=== PATIENT | male | born 1995 | race Caucasian/White ===

== ENCOUNTER 2017-05-25 12:02 | Emergency (ER) | payer OTHER ==
[2017-05-25 12:07] VITALS: BP 119/61; PULSE 73; TEMP 98; BMI 24.0
[2017-05-25] MEDS ORDERED: IBUPROFEN 400 MG TABLET (FP) PO ONE ×2 (13:22→13:25)
--- NOTE | 2017-05-25 13:28 | PDOC ---
History of Present Illness - General Chief Complaint: Injury Stated Complaint: INJURY Time Seen by Provider: 05/25/17 12:43 History Source: Patient - History of Present Illness Occurred: reports: just prior to arrival Upper Extremity Pain Location: left: elbow Method of Injury: reports: fell Past History - Past Medical History Allergies/Adverse Reactions: Allergies Allergy/AdvReac Type Severity Reaction Status Date / Time No Known Allergies Allergy Verified 05/25/17 12:03 Home Medications: Ambulatory Orders Ibuprofen [Motrin -] 600 mg PO QID #28 tablet 05/25/17 Other medical history: DENIES. - Psycho/Social/Smoking Cessation Hx Suicidal Ideation: No Smoking History: Current some day smoker Have you smoked in the past 12 months: Yes Information on smoking cessation initiated: No Review of Systems - Review of Systems Musculoskeletal: Yes: Joint Pain, Joint Swelling Neurological: No: Numbness, Tingling, Weakness *Physical Exam - Vital Signs Last Vital Signs Temp Pulse Resp BP Pulse Ox 98 F 73 19 119/61 98 05/25/17 12:03 05/25/17 12:03 05/25/17 12:03 05/25/17 12:03 05/25/17 12:03 - Physical Exam General Appearance: Yes: Appropriately Dressed. No: Apparent Distress HEENT: positive: Normal Voice Neck: positive: Supple Respiratory/Chest: negative: Respiratory Distress Extremity: positive: Swelling (to lateral aspect of L elbow, unable to flex/ extend elbow, NVI) Integumentary: positive: Dry, Warm Neurologic: positive: Fully Oriented, Alert, Normal Mood/Affect ED Treatment Course - RADIOLOGY Radiology Studies Ordered: Category Date Time Status ELBOW-LEFT [RAD] Stat Radiology 05/25/17 13:22 Ordered SHOULDER-LEFT [RAD] Stat Radiology 05/25/17 13:22 Ordered WRIST-LEFT [RAD] Stat Radiology 05/25/17 13:22 Ordered Medical Decision Making - Medical Decision Making 05/25/17 13:24 22 yo M, no sig hx, here w/ L elbow deformity after falling on an outstretched hand while playing soccer today. Denies any other injuries See exam R/o L elbow fx/dislocation -pain control -sling -XR 05/25/17 14:41 Avulsion fx of coronoid process or ulna. Pt given sling and pain control and instructed to f/u with orthopedics as soon as possible to ensure that complications like osteochondritis dessecans, does not occur. 05/25/17 14:54 05/25/17 14:57 *DC/Admit/Observation/Transfer Diagnosis at time of Disposition: Elbow fracture, right Qualifiers: Encounter type: initial encounter Fracture type: closed Qualified Code(s): S42.401A - Unspecified fracture of lower end of right humerus, initial encounter for closed fracture - Discharge Dispostion Disposition: HOME Condition at time of disposition: Good - Prescriptions Prescriptions: Ibuprofen [Motrin -] 600 mg PO QID #28 tablet - Patient Instructions Printed Discharge Instructions: DI for Elbow Fracture Additional Instructions: Please call the orthopedist tomorrow to make an appointment for as soon as possible Take 600mg of motrin every 6 hrs for pain
--- NOTE | 2017-05-25 14:59 | PDOC ---
*Physical Exam - Vital Signs Last Vital Signs Temp Pulse Resp BP Pulse Ox 98 F 73 19 119/61 98 05/25/17 12:03 05/25/17 12:03 05/25/17 12:03 05/25/17 12:03 05/25/17 12:03 ED Treatment Course - RADIOLOGY Radiology Studies Ordered: Category Date Time Status ELBOW-LEFT [RAD] Stat Radiology 05/25/17 13:22 Completed SHOULDER-LEFT [RAD] Stat Radiology 05/25/17 13:22 Completed WRIST-LEFT [RAD] Stat Radiology 05/25/17 13:22 Ordered - Medications Given in the ED: ED Medications Discontinued Medications Generic Name Dose Route Start Last Admin Trade Name Freq PRN Reason Stop Dose Admin Ibuprofen 800 mg 05/25/17 13:22 05/25/17 13:26 Motrin - PO 05/25/17 13:23 800 mg ONCE ONE Administration *DC/Admit/Observation/Transfer Diagnosis at time of Disposition: Elbow fracture, right Qualifiers: Encounter type: initial encounter Fracture type: closed Qualified Code(s): S42.401A - Unspecified fracture of lower end of right humerus, initial encounter for closed fracture - Discharge Dispostion Disposition: HOME Condition at time of disposition: Good - Prescriptions Prescriptions: Ibuprofen [Motrin -] 600 mg PO QID #28 tablet - Referrals Referrals: Maya Oh MD [Primary Care Provider] - Iván Horn MD [Staff Physician] - - Patient Instructions Printed Discharge Instructions: DI for Elbow Fracture Additional Instructions: Please call the orthopedist tomorrow to make an appointment for as soon as possible Take 600mg of motrin every 6 hrs for pain - Post Discharge Activity
== END 2017-05-25 15:28 | disposition home or self-care (01) ==
LOC: JERFT 12:02 → EDSEX 12:02 → JERFT 15:28
DX: S52.042A Displaced fracture of coronoid process of left ulna, initial encounter for closed fracture (principal); W18.39XA Other fall on same level, initial encounter; Y93.66 Activity, soccer; Y92.322 Soccer field as the place of occurrence of the external cause; Y99.8 Other external cause status
CPT/HCPCS: 73030-TC-LT; 73070-TC-LT; 99281-25

== ENCOUNTER 2018-03-19 19:45 | Emergency (ER) | payer OTHER ==
[2018-03-19] MEDS ORDERED: FLUORESCEIN NA 1 EA STRIP ONE (20:37)
[2018-03-19] MEDS ORDERED: TETRACAINE 0.5% OPHTH SOLN 2 ML BOTTLE ONE (20:37)
[2018-03-19 20:49] VITALS: BP 134/79; PULSE 75; TEMP 99; BMI 24.9
[2018-03-19] MEDS ORDERED: TOBRAMYCIN 0.3% OPHTH SOLN 5 ML BOTTLE ONE (21:51)
--- NOTE | 2018-03-19 21:55 | PDOC ---
History of Present Illness - General Chief Complaint: Eye Problem Stated Complaint: LEFT EYE PAIN Time Seen by Provider: 03/19/18 20:30 - History of Present Illness Initial Comments: This 23-year-old man, otherwise healthy ,presents with left eye pain. 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 He does not recall anything falling into his eye but approximately an hour prior to presentation he became aware of pain in his eye. He also saw of redness in the lateral aspect of the eye. He denies vision changes. No previous history of eye injury. He has not had any crusting or discharge from the eye. Past History - Past Medical History Allergies/Adverse Reactions: Allergies Allergy/AdvReac Type Severity Reaction Status Date / Time No Known Allergies Allergy Verified 03/19/18 20:30 Home Medications: Ambulatory Orders NK [No Known Home Medication] 03/19/18 COPD: No - Immunization History Immunization Up to Date: Yes - Suicide/Smoking/Psychosocial Hx Smoking History: Never smoked Have you smoked in the past 12 months: Yes Information on smoking cessation initiated: No Hx Alcohol Use: No Drug/Substance Use Hx: No Substance Use Type: None Review of Systems - Review of Systems Able to Perform ROS?: Yes Comments:: 12 point review of systems is negative except for what is noted in the history of present illness *Physical Exam - Vital Signs Last Vital Signs Temp Pulse Resp BP Pulse Ox 99.0 F 75 16 134/79 100 03/19/18 20:29 03/19/18 20:29 03/19/18 20:29 03/19/18 20:29 03/19/18 20:29 - Physical Exam Comments: GENERAL: HEAD: Normal with no signs of trauma. EYES: PERRLA, EOMI, sclera anicteric, small sub conjunctival hemorrhage lateral aspect of left eye Anterior chambers normal without evidence of hyphema or other abnormality; no obvious foreign body noted ENT: Ears normal, nares patent, oropharynx clear without exudates. Dry mucous membranes. NEUROLOGICAL: Cranial nerves II through XII grossly intact. Normal speech. No focal neurological deficits. MUSCULOSKELETAL: Back non-tender to palpation, no CVA tenderness SKIN: Warm, Dry, normal turgor, no rashes or lesions noted. 2 drops of tetracaine ophthalmic solution applied to the left eye; fluorescein staining revealed small central corneal abrasion of the left eye. No evidence of foreign body present. No other abrasion seen. Moderate Sedation - Procedure Monitoring Vital Signs: Vital Signs Temp Pulse Resp BP Pulse Ox 99.0 F 75 16 134/79 100 03/19/18 20:29 03/19/18 20:29 03/19/18 20:29 03/19/18 20:29 03/19/18 20:29 Medical Decision Making - Medical Decision Making Clinical presentation consistent with small corneal abrasion of of the left eye ; there is also a small lateral subconjunctival hemorrhage in the side. Otherwise, no injury present. 2 drops of tobramycin ophthalmic solution placed in the left eye. Patient will continue administration of the antibiotic solution every 4 hours while awake. He should be seen by counter molder within the next 48 hours. Patient has no counter molder and referral information for Dr. Gil/ given to the patient. He should return to the emergency room if he has worsening pain or vision difficulties *DC/Admit/Observation/Transfer Diagnosis at time of Disposition: Subconjunctival hemorrhage of left eye Corneal abrasion Qualifiers: Encounter type: initial encounter Laterality: left Qualified Code(s): S05.02XA - Injury of conjunctiva and corneal abrasion without foreign body, left eye, initial encounter - Discharge Dispostion Disposition: HOME Condition at time of disposition: Stable - Referrals Referrals: Maya Oh MD [Primary Care Provider] - Rodolfo Gil MD [Staff Physician] - Call tomorrow - Patient Instructions Printed Discharge Instructions: Corneal Abrasion Additional Instructions: Tobramycin eye solution 2 drops left eye every 4 hours while awake until seen by eye doctor Call Dr. Gil/Dr. Zavala office (eye doctor) tomorrow to arrange follow-up within 1-2 days No work tomorrow Tylenol/Motrin/Aleve as needed for pain Return to ER if you have severe pain/worsening vision - Post Discharge Activity Forms/Work/School Notes: Back to Work
== END 2018-03-19 22:02 | disposition home or self-care (01) ==
LOC: FER 19:45
DX: S05.02XA Injury of conjunctiva and corneal abrasion without foreign body, left eye, initial encounter (principal); X58.XXXA Exposure to other specified factors, initial encounter; Y93.89 Activity, other specified; Y92.9 Unspecified place or not applicable
CPT/HCPCS: 99281-25